=== PATIENT | female | born 1980 | race Caucasian/White ===

== ENCOUNTER 2018-07-07 06:01 | Day surgery (SDC) | payer OTHER | END 2018-07-07 16:00 | disposition home or self-care (01) | LOC: CIR.AMB 06:01 | DX: N84.0 Polyp of corpus uteri (principal) ==

== ENCOUNTER 2018-07-25 09:01 | Inpatient (IN) | payer OTHER ==
[~2018-07-25] VITALS: Ht 162.6 cm; Wt 89.4 kg
== END 2018-07-30 09:59 | disposition home or self-care (01) | DRG 743 ==
LOC: O/R 07-28 06:20 → OB/GYN 07-28 06:20
PROVIDERS: ADMIT Obstetrics & Gynecology
PROC: 0UT70ZZ Resection of Bilateral Fallopian Tubes, Open Approach (ICD-10-PCS; 2018-07-28)
PROC: 0UT90ZZ Resection of Uterus, Open Approach (ICD-10-PCS; principal; 2018-07-28 18:45)
DX: N85.01 Benign endometrial hyperplasia (principal); N73.6 Female pelvic peritoneal adhesions (postinfective); D64.89 Other specified anemias; N72 Inflammatory disease of cervix uteri